=== PATIENT | female | born 2000 | race African-American/Black ===

== ENCOUNTER 2024-04-13 10:02 | Observation (INO) | payer OTHER, SELFPAY ==
[2024-04-13] VITALS (86 sets, daily range): BP systolic 95–148; BP diastolic 49–94; PULSE 71–170; TEMP 36.7–36.9; O2SAT 97–100; BMI 26.6; BMI 29.9
--- NOTE | 2024-04-13 10:09 | ECG_ITS ---
The [facility] Test Date: 2024-04-13 Pat Name: ALEXA MARRERO Department: Room: - Gender: Female Personal Injury Litigation Paralegal: : 2000 Requested By: Order Number: [id number] Reading MD: CHELE ROMANO Measurements Intervals [place] Rate: 102 P: 63 MD: 146 QRS: 64 QRSD: 84 T: 35 QT: 340 QTc: 399 Interpretive Statements 1120 Sinus tachycardia 9140 abnormal rhythm ECG No previous ECG available for comparison Electronically Signed On 04-13-2024 23:39:14 EDT by CHELE ROMANO
--- NOTE | 2024-04-13 10:09 | XR_ITS ---
The [address] [address] Patient Name: ALEXA MARRERO MRN: [id number] date: 2000 Sex: F Assigned Patient Location: ER Current Patient Location: ER Accession/Order Number: [id number] Exam Date: 04/13/2024 13:43 Report Date: 04/13/2024 14:19 At the request of: ROCKY MATHEW Procedure: XR chest 1V EXAM: XR chest 1V HISTORY: Altered mental status. COMPARISON: None. TECHNIQUE: AP supine portable chest radiograph performed. FINDINGS: The trachea is midline. The cardiac mediastinal silhouette and hilar shadows are within normal limits. There is no consolidation, pleural effusion or pulmonary vascular congestion. There is no pneumothorax or osseous abnormality. XR/XR chest 1V IMPRESSION: Unremarkable AP supine portable chest radiograph. Electronically authenticated by: SABINO VILLAFANA Date: 04/13/2024 14:19
[2024-04-13] MEDS: HALOPERIDOL LACTATE 5 MG/ML VIAL IV (10:31)
[2024-04-13 10:38] LABS: Basophils Percent Auto 0.5 % (0.2-2.0); Eosinophils Absolute Auto 0.2 10^3/uL (0.0-0.7); Hematocrit 35.6 % (36.0-48.0); Hemoglobin 12.2 g/dL (12.0-16.0); Immature Granulocytes Abs Auto 0.02 10^3/uL (0.00-0.03); Immature Granulocytes Pct Auto 0.2 % (0.0-0.5); Lymphocytes Percent Auto 12.4 % (20.5-60.0); Mean Corpuscular HGB Conc 34.3 g/dL (29.9-35.2); Mean Corpuscular Hemoglobin 30.3 pg (26.7-34.0); Mean Corpuscular Volume 88.3 fL (81.0-99.0); Mean Platelet Volume 10.5 fL (9.5-13.5); Monocytes Absolute Auto 0.4 10^3/uL (0.3-0.8); Monocytes Percent Auto 5.3 % (1.7-12.0); Neutrophils Absolute Auto 6.7 10^3/uL (1.4-6.5); Neutrophils Percent Auto 79.6 % (43.0-75.0); Platelet Count 290 10^3/uL (150-450); Red Blood Count 4.03 10^6/uL (4.20-5.40); Red Cell Distribution Width 12.9 % (11.0-15.0); White Blood Count 8.4 10^3/uL (4.0-11.0)
[2024-04-13 10:51] LABS: HCG Qualitative NEGATIVE (NEGATIVE); Internal Control Within Normal Limits
[2024-04-13 10:56] LABS: INR 1.25
[2024-04-13 11:03] LABS: Alanine Aminotransferase 44 U/L (14-59); Albumin Globulin Ratio 1.2; Albumin Level 4.2 g/dL (3.4-5.0); Alkaline Phosphatase 88 U/L (46-116); Anion Gap 19.3; Aspartate Amino Transferase 170 U/L (15-37); BUN Creatinine Ratio 12.6; Bilirubin Total 0.8 mg/dL (0.2-1.0); Calcium 9.3 mg/dL (8.5-10.1); Carbon Dioxide 21.2 mmol/L (21.0-32.0); Chloride 100 mmol/L (98-107); Estimated GFR (African America >60 (>=60 mL/min/1.73m^2); Estimated GFR (Non-African Ame >60 (>=60 mL/min/1.73m^2); Ethanol <3 mg/dL; Globulin 3.4 g/dL; Glucose 50 mg/dL (74-106); Potassium 3.5 mmol/L (3.5-5.1); Sodium 137 mmol/L (136-145); Total Protein 7.6 g/dL (6.4-8.2); Troponin I High Sensitivity 6.7 pg/mL (4.0-51.3)
[2024-04-13] MEDS: DEXTROSE 50 %-WATER 25 GM/50 ML SYRINGE IV ×2 (11:20→14:56)
--- NOTE | 2024-04-13 11:29 | ED_ITS ---
HPI HPI - General Adult General Chief complaint: Psychiatric Symptoms Stated complaint: ALTERED MENTAL STATUS Time Seen by Provider: 04/13/24 10:08 Mode of arrival: ambulance History of Present Illness HPI narrative: The patient brought to us by the EMS after she was already sedated by ketamine and Versed, patient was found by the EMS in her bathroom and apparently with the white powder and straw for suspicion of using drugs, the patient already have a history of drug use and she was in a sober home over the last few weeks but seem that she went to her friend's house and that where the EMS found her. The patient initially according to the EMS was trying to be cooperative but she was moving her upper and lower extremity uncontrollably and she was at risk of hurting herself and others around her and they had to give her ketamine to sedate her according to the EMS physician orders After giving ketamine it got worse so they gave her Versed and this helped improving her symptoms and she was sedated She presented to us by the EMS sleeping and with normal vital signs respond to to painful stimuli. By the EMS the blood sugar was at the 70s upon arrival and she was given 300 mg of ketamine IM in addition to 7.5 mg of Versed IM before arrival Related Data Home Medications ?Medication ?Instructions ?Recorded ?Confirmed acetaminophen 500 mg tablet 500 mg PO Q6H PRN pain 04/13/24 04/13/24 bacitracin 500 unit/gram topical 1 applic topical Q12H 04/13/24 04/13/24 ointment doxycycline hyclate 100 mg capsule 100 mg PO BID 04/13/24 04/13/24 erythromycin 5 mg/gram (0.5 %) eye 0.5 inch ophthalmic (eye) Q12H 04/13/24 04/13/24 ointment prazosin 1 mg capsule 1 mg PO DAILY 04/13/24 04/13/24 quetiapine 100 mg tablet 100 mg PO DAILY 04/13/24 04/13/24 quetiapine 50 mg tablet 50 mg PO DAILY 04/13/24 04/13/24 Allergies Allergy/AdvReac Type Severity Reaction Status Date / Time No Known Drug Allergies Allergy Verified 04/13/24 10:10 Opioid HPI Opioid Management Most Recent Opioid Data: No Data to Display Review of Systems ROS Narrative Not able to obtain review of system due to the patient clinical presentation Exam Narrative Exam Narrative: The patient airway was patent and pulse ox is 98% on room air Nurses notes and vital signs reviewed and patient is not hypoxic. General: Sedated but responds to painful stimuli while trying to do a straight cath the patient started moving around and she needed to be restrained Skin: Warm, dry, no pallor noted. No rash. Head: Normocephalic, atraumatic. Neck: Supple, non-tender. Eye: Pupils are equal, and pinpoint Ears, Nose, Mouth, and Throat: TM are clear, no nasal mucosal hypertrophy. Oral mucosa is moist, no posterior oropharynx erythema, uvula is mid-line Cardiovascular: Regular Rate and Rhythm without murmur, gallop or rub. Respiratory: No accessory muscle use or respiratory distress. Lungs are clear to auscultation, no wheezing, rales or rhonchi Chest Wall: no tenderness Musculoskeletal: normal ROM, no calf or popliteal tenderness, no lower extremity edema/swelling GI: Abdomen is soft, non-distended. Normal bowel sounds. No masses appreciated. No tenderness to palpation. No rebound, guarding, or rigidity noted. Constitutional Vital Signs, click to edit/add: Last Vital Signs Temp 98.0 F 04/13/24 10:03 Pulse 72 04/13/24 18:30 Resp 15 04/13/24 13:40 BP 104/73 04/13/24 17:30 Pulse Ox 100 04/13/24 17:40 O2 Del Method Nasal Cannula 04/13/24 14:02 O2 Flow Rate 2 04/13/24 14:02 Course Vital Signs Vital signs: Vital Signs Temperature 98.0 F 04/13/24 10:03 Pulse Rate 99 H 04/13/24 10:03 Respiratory Rate 16 04/13/24 10:03 Blood Pressure 126/84 04/13/24 10:03 Pulse Oximetry 97 04/13/24 10:03 Oxygen Delivery Method Nasal Cannula 04/13/24 10:03 Oxygen Delivery Flow Rate 2 04/13/24 10:03 Temperature 98.0 F 04/13/24 10:03 Pulse Rate 72 04/13/24 18:30 Respiratory Rate 15 04/13/24 13:40 Blood Pressure 104/73 04/13/24 17:30 Pulse Oximetry 100 04/13/24 17:40 Oxygen Delivery Method Nasal Cannula 04/13/24 14:02 Oxygen Delivery Flow Rate 2 04/13/24 14:02 Medical Decision Making MDM Narrative Medical decision making narrative: Patient EKG upon arrival is sinus tachycardia with a heart rate of 102 Vitals were within normal and the patient was saturating 98% on room air The patient started moving uncontrollably using her upper and lower extremity and trying to get out of bed, she is opening her eyes but yelling with no coherent words, the staff restrained the patient and she was sitting with Haldol I did speak with poison control and the patient did have a negative aspirin level and Tylenol level as well as alcohol level The patient AST was stable at 170 and 162 when checked Patient CK was elevated around 3400 and the patient was provided almost 2 L of fluid in the ER The patient was noted to have a low blood sugar and the blood workup she was provided with dextrose then remeasured it shows that her blood sugar was elevated but it dropped after 2 hours she was provided again with dextrose 50% and she was placed in 10% dextrose water at 100 cc/h The patient after 6 hours woke up she did mention that she did not mean to hurt anybody and she also mentioned that she did not eat in 3 days. She also mentioned that she was in detox not long time ago but she did not say what exactly she took and she did not provide us with a urine sample and she went back to sleep after she was provided with fluid in the ER Right now the patient will be monitored without the dextrose to see if her blood sugar will stay elevated and it is noted that the patient have significant improvement in her mental status compared to when she came but she is still sleepy and not stable to ambulate Also noted the patient had a CT head that was negative as well as chest x-ray showing no acute pathology and that the patient was taking doxycycline in the last few days before arrival Patient case will be transferred for further monitoring to Dr Staton Lab Data Labs: Lab Results 04/13/24 04/13/24 04/13/24 Range/Units 10:10 10:15 11:36 WBC 8.4 (4.0-11.0) 10^3/uL RBC 4.03 L (4.20-5.40) 10^6/uL Hgb 12.2 (12.0-16.0) g/dL Hct 35.6 L (36.0-48.0) % MCV 88.3 (81.0-99.0) fL MCH 30.3 (26.7-34.0) pg MCHC 34.3 (29.9-35.2) g/dL RDW 12.9 (11.0-15.0) % Plt Count 290 (150-450) 10^3/uL MPV 10.5 (9.5-13.5) fL Neut % (Auto) 79.6 H (43.0-75.0) % Lymph % (Auto) 12.4 L (20.5-60.0) % Dixie % (Auto) 5.3 (1.7-12.0) % Eos % (Auto) 2.0 (0.9-7.0) % Baso % (Auto) 0.5 (0.2-2.0) % Neut # (Auto) 6.7 H (1.4-6.5) 10^3/uL Lymph # (Auto) 1.0 L (1.2-3.8) 10^3/uL Dixie # (Auto) 0.4 (0.3-0.8) 10^3/uL Eos # (Auto) 0.2 (0.0-0.7) 10^3/uL Baso # (Auto) 0.0 (0.0-0.1) 10^3/uL Abs Immat Gran (auto) 0.02 (0.00-0.03) 10^3/uL Imm/Tot Granulo (auto) 0.2 (0.0-0.5) % PT 13.0 H (9.0-11.6) sec INR 1.25 Sodium 137 (136-145) mmol/L Potassium 3.5 (3.5-5.1) mmol/L Chloride 100 (98-107) mmol/L Carbon Dioxide 21.2 (21.0-32.0) mmol/L Anion Gap 19.3 BUN 13.0 (7.0-18.0) mg/dL Creatinine 1.03 H (0.55-1.02) mg/dL Est GFR ( Amer) >60 (>=60 mL/min/1.73m^2) Est GFR (Non-Af Amer) >60 (>=60 mL/min/1.73m^2) BUN/Creatinine Ratio 12.6 Glucose 50 L (74-106) mg/dL Calcium 9.3 (8.5-10.1) mg/dL Total Bilirubin 0.8 (0.2-1.0) mg/dL AST 170 H (15-37) U/L ALT 44 (14-59) U/L Alkaline Phosphatase 88 (46-116) U/L Total Creatine Kinase 3476 H* (26-192) U/L Troponin I High Sens 6.7 (4.0-51.3) pg/mL Total Protein 7.6 (6.4-8.2) g/dL Albumin 4.2 (3.4-5.0) g/dL Globulin 3.4 g/dL Albumin/Globulin Ratio 1.2 Serum HCG, Qual Negative (NEGATIVE) Salicylates <2.8 (<=19.9) mg/dL Acetaminophen <2.0 L (10.0-30.0) ug/mL Ethanol Quant <3 mg/dL POC Glucose 148 H (74-106) mg/dL 04/13/24 04/13/24 04/13/24 Range/Units 14:40 15:41 15:54 WBC (4.0-11.0) 10^3/uL RBC (4.20-5.40) 10^6/uL Hgb (12.0-16.0) g/dL Hct (36.0-48.0) % MCV (81.0-99.0) fL MCH (26.7-34.0) pg MCHC (29.9-35.2) g/dL RDW (11.0-15.0) % Plt Count (150-450) 10^3/uL MPV (9.5-13.5) fL Neut % (Auto) (43.0-75.0) % Lymph % (Auto) (20.5-60.0) % Dixie % (Auto) (1.7-12.0) % Eos % (Auto) (0.9-7.0) % Baso % (Auto) (0.2-2.0) % Neut # (Auto) (1.4-6.5) 10^3/uL Lymph # (Auto) (1.2-3.8) 10^3/uL Dixie # (Auto) (0.3-0.8) 10^3/uL Eos # (Auto) (0.0-0.7) 10^3/uL Baso # (Auto) (0.0-0.1) 10^3/uL Abs Immat Gran (auto) (0.00-0.03) 10^3/uL Imm/Tot Granulo (auto) (0.0-0.5) % PT (9.0-11.6) sec INR Sodium 134 L (136-145) mmol/L Potassium 3.6 (3.5-5.1) mmol/L Chloride 99 (98-107) mmol/L Carbon Dioxide 20.3 L (21.0-32.0) mmol/L Anion Gap 18.3 BUN 11.0 (7.0-18.0) mg/dL Creatinine 1.01 (0.55-1.02) mg/dL Est GFR ( Amer) >60 (>=60 mL/min/1.73m^2) Est GFR (Non-Af Amer) >60 (>=60 mL/min/1.73m^2) BUN/Creatinine Ratio 10.9 Glucose 92 (74-106) mg/dL Calcium 8.8 (8.5-10.1) mg/dL Total Bilirubin 0.9 (0.2-1.0) mg/dL AST 162 H (15-37) U/L ALT 48 (14-59) U/L Alkaline Phosphatase 93 (46-116) U/L Total Creatine Kinase (26-192) U/L Troponin I High Sens (4.0-51.3) pg/mL Total Protein 8.0 (6.4-8.2) g/dL Albumin 4.1 (3.4-5.0) g/dL Globulin 3.9 g/dL Albumin/Globulin Ratio 1.1 Serum HCG, Qual (NEGATIVE) Salicylates (<=19.9) mg/dL Acetaminophen (10.0-30.0) ug/mL Ethanol Quant mg/dL POC Glucose 68 L 102 (74-106) mg/dL 04/13/24 Range/Units 17:46 WBC (4.0-11.0) 10^3/uL RBC (4.20-5.40) 10^6/uL Hgb (12.0-16.0) g/dL Hct (36.0-48.0) % MCV (81.0-99.0) fL MCH (26.7-34.0) pg MCHC (29.9-35.2) g/dL RDW (11.0-15.0) % Plt Count (150-450) 10^3/uL MPV (9.5-13.5) fL Neut % (Auto) (43.0-75.0) % Lymph % (Auto) (20.5-60.0) % Dixie % (Auto) (1.7-12.0) % Eos % (Auto) (0.9-7.0) % Baso % (Auto) (0.2-2.0) % Neut # (Auto) (1.4-6.5) 10^3/uL Lymph # (Auto) (1.2-3.8) 10^3/uL Dixie # (Auto) (0.3-0.8) 10^3/uL Eos # (Auto) (0.0-0.7) 10^3/uL Baso # (Auto) (0.0-0.1) 10^3/uL Abs Immat Gran (auto) (0.00-0.03) 10^3/uL Imm/Tot Granulo (auto) (0.0-0.5) % PT (9.0-11.6) sec INR Sodium (136-145) mmol/L Potassium (3.5-5.1) mmol/L Chloride (98-107) mmol/L Carbon Dioxide (21.0-32.0) mmol/L Anion Gap BUN (7.0-18.0) mg/dL Creatinine (0.55-1.02) mg/dL Est GFR ( Amer) (>=60 mL/min/1.73m^2) Est GFR (Non-Af Amer) (>=60 mL/min/1.73m^2) BUN/Creatinine Ratio Glucose (74-106) mg/dL Calcium (8.5-10.1) mg/dL Total Bilirubin (0.2-1.0) mg/dL AST (15-37) U/L ALT (14-59) U/L Alkaline Phosphatase (46-116) U/L Total Creatine Kinase (26-192) U/L Troponin I High Sens (4.0-51.3) pg/mL Total Protein (6.4-8.2) g/dL Albumin (3.4-5.0) g/dL Globulin g/dL Albumin/Globulin Ratio Serum HCG, Qual (NEGATIVE) Salicylates (<=19.9) mg/dL Acetaminophen (10.0-30.0) ug/mL Ethanol Quant mg/dL POC Glucose 87 (74-106) mg/dL Discharge Plan Discharge Chief Complaint: Psychiatric Symptoms Clinical Impression: Drug abuse, AMS (altered mental status) Prescriptions / Home Meds: No Action bacitracin 500 unit/gram ointment 1 applic TOPICAL Q12H doxycycline hyclate 100 mg capsule 100 mg PO BID erythromycin 5 mg/gram (0.5 %) ointment 0.5 inch OPHTHALMIC (EYE) Q12H prazosin 1 mg capsule 1 mg PO DAILY quetiapine 100 mg tablet 100 mg PO DAILY quetiapine 50 mg tablet 50 mg PO DAILY acetaminophen 500 mg tablet 500 mg PO Q6H PRN (Reason: pain) Print Language: [place] Referrals: Physician,Non-Staff, MD [Primary Care Provider] - 1 week
[2024-04-13 11:37] LABS: Glucometer 148 mg/dL (74-106)
--- NOTE | 2024-04-13 12:09 | PC.NURSE ---
Pt woke again thrashing body around bed, unable to foolow orders and non verbal. After approx 5 min pt falls back to sleep. Soft wrist restraints continue. this nurse will continue to monitor.
--- NOTE | 2024-04-13 12:51 | PC.NURSE ---
ptb woke, thrashing around and rocking bed. able to get pt's attention with name but on can focus for seconds before she begins to thrash body around again, pt is able to tell this nurse she is in no pain but that is all she has spoken to me when i ask. pt remains in 4 soft restraints for pt and staff safety. pt falls back to sleep.
--- NOTE | 2024-04-13 13:14 | CT_ITS ---
The [address] [address] Patient Name: ALEXA MARRERO MRN: [id number] date: 2000 Sex: F Assigned Patient Location: ER Current Patient Location: ER Accession/Order Number: [id number] Exam Date: 04/13/2024 13:43 Report Date: 04/13/2024 14:32 At the request of: ROCKY MATHEW Procedure: CT head/brain wo con EXAM: CT head/brain wo con HISTORY: ams COMPARISON: None. TECHNIQUE: CT head without contrast. Axial scans with reformatted coronal and sagittal images. Individualized radiation dose reduction used for this exam. FINDINGS: Normal brain density without mass, edema, or hemorrhage. Ventricles normal size position with no mass effect or shift. No extra-axial or subdural collection. No fracture or focal bone lesion. Visualized mastoid, middle ear cavities clear. Mild ethmoid sinus thickening without fluid level in the visualized sinuses. CT/CT head/brain wo con IMPRESSION: 1. Brain is negative without mass, edema or hemorrhage or other acute abnormality 2. Mild ethmoid sinus thickening without visualized sinuses fluid level. Electronically authenticated by: ROXANA ROSSI Date: 04/13/2024 14:32
[2024-04-13] MEDS: DIAZEPAM 10 MG/2 ML SYRINGE 5 MG IV (13:25)
[2024-04-13 14:42] LABS: Glucometer 68 mg/dL (74-106)
[2024-04-13] MEDS: DEXTROSE 10 % IN WATER 1,000 ML 100 ML IV (14:56)
--- NOTE | 2024-04-13 15:16 | PC.NURSE ---
pt continues trash when awakened, able to clam with words and pt will fall back to sleep.
[2024-04-13 15:59] LABS: Salicylate <2.8 mg/dL (<=19.9)
[2024-04-13 16:00] LABS: Glucometer 102 mg/dL (74-106)
[2024-04-13 16:02] LABS: Acetaminophen <2.0 ug/mL (10.0-30.0)
[2024-04-13 16:03] LABS: Creatine Kinase 3476 U/L (26-192)
[2024-04-13 16:16] LABS: Alanine Aminotransferase 48 U/L (14-59); Albumin Globulin Ratio 1.1; Albumin Level 4.1 g/dL (3.4-5.0); Alkaline Phosphatase 93 U/L (46-116); Anion Gap 18.3; Aspartate Amino Transferase 162 U/L (15-37); BUN Creatinine Ratio 10.9; Bilirubin Total 0.9 mg/dL (0.2-1.0); Calcium 8.8 mg/dL (8.5-10.1); Carbon Dioxide 20.3 mmol/L (21.0-32.0); Chloride 99 mmol/L (98-107); Estimated GFR (African America >60 (>=60 mL/min/1.73m^2); Estimated GFR (Non-African Ame >60 (>=60 mL/min/1.73m^2); Globulin 3.9 g/dL; Glucose 92 mg/dL (74-106); Potassium 3.6 mmol/L (3.5-5.1); Sodium 134 mmol/L (136-145)
[2024-04-13] MEDS: 0.9 % SODIUM CHLORIDE 1,000 ML 1000 ML IV (16:25)
[2024-04-13 18:06] LABS: Glucometer 87 mg/dL (74-106)
[2024-04-13 19:28] LABS: Glucometer 96 mg/dL (74-106)
[2024-04-13 20:16] LABS: Creatine Kinase 2692 U/L (26-192)
[2024-04-13 20:31] LABS: Glucometer 89 mg/dL (74-106)
[2024-04-13] MEDS: FAMOTIDINE/PF 20 MG/2 ML VIAL IV (23:04)
[2024-04-13] MEDS: DEXTROSE 5%-0.9% NACL 1,000 ML 1,000 ML 500 ML IV (23:04)
[2024-04-13 23:15] LABS: Glucometer 121 mg/dL (74-106)
--- NOTE | 2024-04-13 23:48 | RESP.RT ---
No PRN breathing tx given. Pt sleeping. No respiratory distress noted.
[2024-04-14] VITALS (35 sets, daily range): BP systolic 107–137; BP diastolic 66–74; PULSE 64–108; TEMP 36.7–37; O2SAT 98–100
[2024-04-14 00:56] LABS: Glucometer 127 mg/dL (74-106)
[2024-04-14 01:28] LABS: Creatine Kinase 2124 U/L (26-192)
[2024-04-14] MEDS: DEXTROSE 5%-0.9% NACL 1,000 ML 1,000 ML 500 ML IV ×2 (02:45→05:57)
[2024-04-14 03:11] LABS: Glucometer 121 mg/dL (74-106)
[2024-04-14 04:52] LABS: Glucometer 139 mg/dL (74-106)
[2024-04-14 05:30] LABS: Basophils Percent Auto 0.8 % (0.2-2.0); Eosinophils Absolute Auto 0.5 10^3/uL (0.0-0.7); Eosinophils Percent Auto 12.1 % (0.9-7.0); Hematocrit 35.9 % (36.0-48.0); Hemoglobin 12.2 g/dL (12.0-16.0); Lymphocytes Absolute Auto 1.7 10^3/uL (1.2-3.8); Lymphocytes Percent Auto 43.6 % (20.5-60.0); Mean Corpuscular Hemoglobin 30.2 pg (26.7-34.0); Mean Corpuscular Volume 88.9 fL (81.0-99.0); Mean Platelet Volume 9.6 fL (9.5-13.5); Monocytes Absolute Auto 0.4 10^3/uL (0.3-0.8); Monocytes Percent Auto 10.2 % (1.7-12.0); Neutrophils Absolute Auto 1.3 10^3/uL (1.4-6.5); Neutrophils Percent Auto 33.3 % (43.0-75.0); Platelet Count 260 10^3/uL (150-450); Red Blood Count 4.04 10^6/uL (4.20-5.40); Red Cell Distribution Width 13.2 % (11.0-15.0); White Blood Count 3.8 10^3/uL (4.0-11.0)
[2024-04-14 05:56] LABS: Alanine Aminotransferase 32 U/L (14-59); Albumin Globulin Ratio 0.9; Albumin Level 2.9 g/dL (3.4-5.0); Alkaline Phosphatase 71 U/L (46-116); Aspartate Amino Transferase 115 U/L (15-37); Bilirubin Total 0.6 mg/dL (0.2-1.0); Carbon Dioxide 21.3 mmol/L (21.0-32.0); Chloride 106 mmol/L (98-107); Estimated GFR (African America >60 (>=60 mL/min/1.73m^2); Estimated GFR (Non-African Ame >60 (>=60 mL/min/1.73m^2); Globulin 3.1 g/dL; Glucose 140 mg/dL (74-106); Potassium 3.3 mmol/L (3.5-5.1); Sodium 137 mmol/L (136-145)
[2024-04-14 05:59] LABS: Creatine Kinase 1791 U/L (26-192)
[2024-04-14 06:00] LABS: Amphetamine Screen Urine NEGATIVE (NEGATIVE); Barbiturates Screen Urine NEGATIVE (NEGATIVE); Benzodiazepines Screen Urine POSITIVE (NEGATIVE); Buprenorphine Screen Urine POSITIVE (NEGATIVE); Cannabinoid Screen Urine POSITIVE (NEGATIVE); Cocaine Screen Urine POSITIVE (NEGATIVE); Methadone Screen Urine NEGATIVE (NEGATIVE); Methamphetamines Screen Urine NEGATIVE (NEGATIVE); Opiate Screen Urine NEGATIVE (NEGATIVE); Oxycodone Screen Urine NEGATIVE (NEGATIVE); Phencyclidine Screen Urine NEGATIVE (NEGATIVE); Tricyclic Antidepressant Urine NEGATIVE (NEGATIVE)
[2024-04-14 06:34] LABS: Glucometer 161 mg/dL (74-106)
[2024-04-14] MEDS: 0.9 % SODIUM CHLORIDE 1,000 ML 100 ML IV (08:27)
[2024-04-14 08:37] LABS: Glucometer 101 mg/dL (74-106)
--- NOTE | 2024-04-14 09:32 | CM.NOTE ---
Rounds made with Dr. Fernández, pt awake and oriented. Dr. Fernández discussed with patient positive drug screening findings and reason for admission. Pt states she was at sober living and was kicked out d/t positive screening for alcohol, pt now has to do inpatient rehab for 2 weeks to be able to go back to sober living. Pt states she has everything set up. Discussed with SW and she will talk with patient.
--- NOTE | 2024-04-14 09:48 | SWNOTE1 ---
LENKA spoke to pt about her discharge plans. Pt voiced she plans to go to [facility] in [place]. LENKA asked if she has been there before, she stated she has been there like 7 times. She was at sober living in [place] and had a relapse. LENKA asked if she spoke to anyone from [facility]. She stated that she spoke to someone yesterday. Pt voiced she wants to let her phone charge for a little bit then she will be leaving. LENKA called over and spoke to Lexi at [facility]. She is familiar with pt. She voiced they can take a quick review and that should not be an issue and they should be able to accept. LENKA sent over ED note, demo sheet, labs, vitals, any recent nurse notes, and dianostic imaging. LENKA then received a call back from Lexi and she prefers transport to be set up for pt. All of pt's family lives in [place] and pt is on parole. Lexi has concerns that she may be on the run and where she may go if family/friend picks her up. LENKA to speak with pt. LENKA updated nurse.
--- NOTE | 2024-04-14 10:06 | P.HP_ITS ---
HPI H&P: HPI History of Present Illness Chief complaint: ALTERED MENTAL STATUS, RHABDOMYOLYSIS Narrative: HPI and Hospital Course: 23-year-old female with history of polysubstance abuse was found at her friends house with suspicious white substance. EMS was called in and initially patient was confused but co operative. She subsequently became aggressive/agitated and had to be sedated by EMS. Patient was brought over to ED. She was drowsy/sedated in ED but comfortable. Work up revealed her urine was positive for cocaine, benzodiazepine, THC and buprenorphine she was admitted overnight for close observation as she had received multiple sedative medication and was still too drowsy/sleepy to be safely discharged. Patient had recently been in an inpatient rehab and was just discharged from sober living because of alcohol and drugs in her system. Overnight she was briefly hypoglycemic and was started on IV glucose drip. Earlier this morning when I evaluated her, she had no active complaints to offer. She was at her baseline mental status. She admitted to using cocaine, benzodiazepine. She reports she is surprised that buprenorphine is in her urine as she has not used it for a week. Patient told me that she plans to go to inpatient rehab after she is discharged from the hospital. Patient is medically stable for discharge. She was counseled on risk associated with substance abuse. Opioid HPI Opioid Management Most Recent Pain and Opioid Data: Last Pain Assessment 04/14/24 10:00 Last ORT Total Score 5 04/13/24 22:47 04/13/24 Last ORT Risk Category Moderate Risk 04/13/24 22:47 04/13/24 Ur Phencyclidine Scrn Negative (NEGATIVE) 04/14/24 05:30 04/04 07/28 Review of Systems ROS Status of ROS 10 or more systems reviewed and unremark able except as noted in history and below [facility] Medical History (Updated 04/14/24 @ 10:46 by Shaikh Jolene MD) Drug abuse ?F19.10 - Other psychoactive substance abuse, uncomplicated (ICD-10) Rhabdomyolysis ?M62.82 - Rhabdomyolysis (ICD-10) Bipolar depression ?F31.9 - Bipolar disorder, unspecified (ICD-10) Polysubstance abuse ?F19.10 - Other psychoactive substance abuse, uncomplicated (ICD-10) Social History (Updated 04/14/24 @ 10:44 by Shaikh Jolene MD) Within the past year, how often did you have a drink containing alcohol: monthly or less Within the past year, how many standard drinks containing alcohol did you have on a typical day: 1 or 2 Total score: 0 Score interpretation: A score less than 3 is consistent with normal alcohol consumption. Smoking status: Current every day smoker Non-prescribed substance use: cannabis (any form), crack/cocaine and sedatives/tranquilizers Highest level of school completed/degree received: decline to answer Meds Home Medications and Allergies Home Medications ?Medication ?Instructions ?Recorded ?Confirmed ?Type acetaminophen 500 mg tablet 500 mg PO Q6H PRN pain 04/13/24 04/13/24 History bacitracin 500 unit/gram topical 1 applic topical Q12H 04/13/24 04/13/24 History ointment doxycycline hyclate 100 mg capsule 100 mg PO BID 04/13/24 04/13/24 History erythromycin 5 mg/gram (0.5 %) eye 0.5 inch ophthalmic (eye) Q12H 04/13/24 04/13/24 History ointment prazosin 1 mg capsule 1 mg PO DAILY 04/13/24 04/13/24 History quetiapine 100 mg tablet 100 mg PO DAILY 04/13/24 04/13/24 History quetiapine 50 mg tablet 50 mg PO DAILY 04/13/24 04/13/24 History Allergies Allergy/AdvReac Type Severity Reaction Status Date / Time No Known Drug Allergies Allergy Verified 04/13/24 10:10 Exam Constitutional Vital Signs, click to edit/add: Last Vital Signs Temp 98.0 F 04/14/24 03:56 Pulse 86 04/14/24 06:03 Resp 19 04/14/24 04:52 BP 107/66 04/14/24 03:56 Pulse Ox 98 04/14/24 04:16 O2 Del Method Room Air 04/14/24 04:16 O2 Flow Rate 2 04/13/24 14:02 Documenting provider has reviewed patient's vital signs: yes Common normals: no apparent distress and oriented x3 General appearance: cooperative [facility] Common normals: normocephalic and head/scalp atraumatic Head and scalp: normocephalic and atraumatic Eye Common normals: conjunctivae normal and no scleral icterus Conjunctiva: conjunctiva(e) normal Respiratory Common normals: normal respiratory effort and clear to auscultation bilaterally Effort & inspection: able to speak in complete sentences Auscultation: clear to auscultation bilaterally Cardio Common normals: regular rate, S1 normal heart sound and S2 normal heart sound Rate: regular rate Heart sounds: S1 normal and S2 normal GI Common normals: Normal to inspection, nondistended, normoactive bowel sounds present, soft to palpation, non-tender and no hepatosplenomegaly Palpation: soft and no hepatosplenomegaly Extremity Common normals: no clubbing, cyanosis or edema Neuro Common normals: oriented x3, moves all extremities and no focal motor deficits Psych Common normals: mental status grossly normal, denies hallucinations, denies homicidal ideation and denies suicidal ideation Results Labs Labs: Short CBC 04/13/24 04/14/24 Range/Units 10:15 05:22 WBC 8.4 3.8 L (4.0-11.0) 10^3/uL Hgb 12.2 12.2 (12.0-16.0) g/dL Hct 35.6 L 35.9 L (36.0-48.0) % Plt Count 290 260 (150-450) 10^3/uL BMP 04/13/24 04/13/24 04/14/24 10:15 15:54 05:22 Sodium 137 134 L 137 Potassium 3.5 3.6 3.3 L Chloride 100 99 106 Carbon Dioxide 21.2 20.3 L 21.3 BUN 13.0 11.0 7.0 Creatinine 1.03 H 1.01 0.88 Glucose 50 L 92 140 H Calcium 9.3 8.8 8.0 L Cardiac Enzymes 04/13/24 04/13/24 04/14/24 Range/Units 10:10 19:41 00:50 Total Creatine Kinase 3476 H* 2692 H* 2124 H* (26-192) U/L 04/14/24 Range/Units 05:22 Total Creatine Kinase 1791 H* (26-192) U/L Liver Function 04/13/24 04/13/24 04/14/24 Range/Units 10:15 15:54 05:22 Total Bilirubin 0.8 0.9 0.6 (0.2-1.0) mg/dL AST 170 H 162 H 115 H (15-37) U/L ALT 44 48 32 (14-59) U/L Alkaline Phosphatase 88 93 71 (46-116) U/L Albumin 4.2 4.1 2.9 L (3.4-5.0) g/dL Assessment and Plan Assessment and Plan (1) AMS (altered mental status): Qualifiers: Altered mental status type: somnolence Qualified Code(s): R40.0 - Somnolence (2) Bipolar depression: (3) Polysubstance abuse: (4) Hypoglycemia: Plan Patient presented with change in mental status secondary to substance abuse. He was observed overnight. She is back to her baseline mental status. Overnight she became hypoglycemic and required IV dextrose infusion with close monitoring of her blood glucose. She is doing well in the morning and has no active complaints to offer. Patient was counseled on substance abuse. Her mood is stable and she denies homicidal or suicidal ideation. She is medically stable for discharge
--- NOTE | 2024-04-14 10:11 | SWNOTE1 ---
LENKA spoke to pt about her ride that is getting her to take her to rehab. SW offered to set up transportation so that family/friend does not have to make a trip here to get transport her. Pt voiced she does not need or want a ride as she has to stop at her friends to pickle processor her bags. SW asked if her friend can bring her belongings to the rehab facility? She stated she does not want that. She again voiced she does not want a ride. SW let her know that Lexi may want to speak to her. Pt was falling asleep as SW was talking. SW to let Lexi know when she calls back.
--- NOTE | 2024-04-14 11:37 | SWNOTE1 ---
SW spoke to Lexi at [facility] and they are ready for pt at any time. SW did let Lexi know that pt does not want us to set up transport. Lexi voiced she has been trying to call pt's phone. SW went back to ICU and pt was able to speak to Lexi using our phone. Pt is still refusing any kind of transport and will be calling her friend. Lexi has told pt that she has to come by today. Pt voiced understanding. LENKA let nurse know and provided pt with her cell phone to call her friend. Pt is ready for dc from SW stand point.
--- NOTE | 2024-04-14 12:26 | SWNOTE1 ---
Pt had voiced to nurse that she does not have a ride anymore. SW spoke to doctor to see if it was appropriate to send pt home with trips and then she will get a ride to rehab. Doctor is alright with this since pt is going to this home anyways at some point to get her belongings. SW called and set up trips, but once SW had this set, pt voiced her friend is on her way. SW called and cancelled trips.
--- NOTE | 2024-04-18 14:03 | CM.DCFOLLOWU ---
no phone number provided
== END 2024-04-14 12:45 | disposition home or self-care (01) ==
LOC: ER 20:56 → ICU 22:31
PROVIDERS: Emergency Medicine; Registered Nurse; Admitting Provider Internal Medicine; Emergency Provider Emergency Medicine; Visit Provider Internal Medicine
DX: F19.10 Other psychoactive substance abuse, uncomplicated (principal); R41.82 Altered mental status, unspecified; E16.2 Hypoglycemia, unspecified; F31.9 Bipolar disorder, unspecified; M62.82 Rhabdomyolysis; F17.200 Nicotine dependence, unspecified, uncomplicated
CPT/HCPCS: 36415; 70450; 71045; 80053; 80179; 80307; 80320; 80329; 82550; 82948; 83735; 84484; 84703; 85025; 85610; 93005; 94761; 96361; 96374; 96375; 99285; G0378; J1630; J3360